=== PATIENT | female | born 1955 | race Caucasian/White ===

== ENCOUNTER → 2024-12-16 08:41 | Outpatient (REF) | payer MEDICARE, OTHER, SELFPAY | LOC: RCS 08:41 | PROVIDERS: ATTENDING PHYSICIAN Internal Medicine Cardiovascular Disease; FAMILY PHYSICIAN Family Medicine | DX: I31.39 Other pericardial effusion (noninflammatory) (principal); I35.8 Other nonrheumatic aortic valve disorders | CPT/HCPCS: 93306 ==